=== PATIENT | male | born 1960 | race Caucasian/White ===

== ENCOUNTER 2024-03-09 12:16 | Emergency (ER) | payer BC, SELFPAY ==
[2024-03-09 12:21] VITALS: BP 125/85; PULSE 112; RESP 16; TEMP 36.7; O2SAT 91; BMI 32.3
--- NOTE | 2024-03-09 13:33 | ED_ITS ---
HPI - General Adult General Time Seen by Provider: 13:33 Date Seen: 03/09/24 Chief complaint: Lower Extremity Swelling Stated complaint: Left leg swelling/red/pain Time Seen by Provider: 03/09/24 13:33 Source: patient and family Mode of arrival: ambulatory Limitations: no limitations History of Present Illness HPI narrative: Isaias is a very pleasant 63-year-old gentleman with history of DVT, PE, significant lower extremity varicosities and history of vein stripping bilaterally x2 who comes to the emergency room for evaluation of left leg pain. Patient noted that he has had longstanding problems with his legs and now has peripheral neuropathy. He notes that he has had increasing discomfort in his left leg over the past 2 weeks and now has redness on the upper aspect of his thigh. He notes that it is very firm to the touch and painful. He is just getting over a significant respiratory infection. He states that he was quite bad but never got checked out and never did a swab. He states he is getting better but still has a productive cough of green sputum. Denies any fevers or chills. Has not had any injury to the leg. Denies any tick bites. Breathing is okay at this time and he denies any chest pain. Isaias tells me he does smoke. 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 Related Data Home Medications ?Medication ?Instructions ?Recorded ?Confirmed celecoxib 100 mg capsule 100 mg PO BID 03/09/24 03/09/24 ferrous sulfate 325 mg (65 mg 325 mg PO DAILY 03/09/24 03/09/24 iron) tablet,delayed release naltrexone 50 mg tablet 50 mg PO DAILY 03/09/24 03/09/24 sennosides 8.6 mg-docusate sodium 1 tab-cap PO DAILY 03/09/24 03/09/24 50 mg tablet simvastatin 20 mg tablet 20 mg PO QPM 03/09/24 03/09/24 tamsulosin 0.4 mg capsule 0.4 mg PO DAILY 03/09/24 03/09/24 Previous Rx's ?Medication ?Instructions ?Recorded doxycycline hyclate 100 mg capsule 100 mg PO BID #7 caps 03/09/24 rivaroxaban 10 mg tablet (Xarelto) 10 mg PO DAILY 45 days #45 tabs 03/09/24 Allergies Allergy/AdvReac Type Severity Reaction Status Date / Time chlorthalidone Allergy Unknown myalgia Verified 03/09/24 12:32 hydroxyzine AdvReac Unknown Verified 03/09/24 12:32 Review of Systems Status of ROS: Reports: 10 or more systems reviewed and unremarkable except as noted in History and below Const: Denies: fever or chills ENMT: Denies: throat pain or nasal discharge Cardio: Denies: chest pain, swelling of feet/ankles or shortness of breath with exertion Resp: Reports: cough and change in phlegm color (Green); Denies: shortness of breath GI: Denies: abdominal pain, nausea or vomiting Musculo: Reports: extremity pain Integ/Breast: Reports: redness and skin tenderness Exam Narrative: Exam Narrative: Isaias is alert and oriented. Very pleasant gentleman. EOM is full. Heart with regular rate and rhythm. Lungs show some expiratory wheezing in the bases bilaterally. Few crackles noted in the left lower lung base. Abdomen soft nontender. Examination of the lower extremity shows multiple varicosities. On the left patient has in addition to varicosities areas of erythema with central firmness on the left anterior medial thigh. Also noted erythema spreading on to the lateral part of the thigh on the left just above the kneecap. I do not note any skin compromise. Const: Vital Signs, click to edit/add: Vital Signs - 24 hr 03/09/24 12:21 Temperature 98.1 F Pulse Rate [Pulse Oximeter] 112 H Respiratory Rate 16 Blood Pressure [Ri ght Upper Arm] 125/85 Pulse Oximetry 91 Oxygen Delivery Me thod Room Air Documenting provider has reviewed patient's vital signs: yes Course Course ED Course: At this time differential diagnosis includes cellulitis, superficial thrombophlebitis complicated by cellulitis, erythema nodosum, pneumonia. Although patient did have recent lung infection he did not follow-up with the clinic for evaluation with chest x-ray or swabbing. Will do chest x-ray at this time. It would be unusual that erythema nodosum would only show up unilaterally. Also of greater concern is the possibility of underlying DVT. Have ordered ultrasound of the left lower extremity. Will also check CBC and comprehensive panel as well as CRP. Vital Signs Vital signs: Initial Vital Signs Temperature 98.1 F 03/09/24 12:21 Temperature Source Temporal Artery Scan 03/09/24 12:21 Pulse Rate 112 H 03/09/24 12:21 Pulse Rhythm Regular 03/09/24 12:21 Respiratory Rate 16 03/09/24 12:21 Blood Pressure 125/85 03/09/24 12:21 Blood Pressure Mean 98 03/09/24 12:21 Blood Pressure Position Sitting 03/09/24 12:21 Pulse Oximetry 91 03/09/24 12:21 Oxygen Delivery Method Room Air 03/09/24 12:21 Vital Signs Temperature 98.1 F 03/09/24 12:21 Pulse Rate 112 H 03/09/24 12:21 Respiratory Rate 16 03/09/24 12:21 Blood Pressure 125/85 03/09/24 12:21 Pulse Oximetry 91 03/09/24 12:21 Oxygen Delivery Method Room Air 03/09/24 12:21 Temperature 98.1 F 03/09/24 12:21 Pulse Rate 112 H 03/09/24 12:21 Respiratory Rate 16 03/09/24 12:21 Blood Pressure 125/85 03/09/24 12:21 Pulse Oximetry 91 03/09/24 12:21 Oxygen Delivery Method Room Air 03/09/24 12:21 Medical Decision Making MDM Narrative Medical decision making narrative: 1. Superficial thrombophlebitis-thrombophlebitis noted on ultrasound. Clot does extend does extend into the GSV therefore this does indicate treatment with anticoagulation. Examination does show that the erythema seems to follow the upper aspect of the venous system. There does not appear to be clot at that particular location but appearance is highly suggestive of this. We will treat with Xarelto 10 mg daily for 45 days per up-to-date protocol. 2. Cellulitis-will also treat with doxycycline for presumed cellulitis given the spreading of the erythema. Chest x-ray reassuring but if there was an occult infection doxycycline would also be appropriate. White count normal today with slight elevation of CRP to 1.6. 3. Disposition-home at this time. Prescription for both doxycycline as well as Xarelto sent to pharmacy for this gentleman. Initially offered IV antibiotics but he declines as he states that he has venison that he needs to put in the smoker. No fever chills or elevated white count so I feel this is appropriate. Asked patient to return for further evaluation if he has worsening symptoms. Medical Records Medical records reviewed: Yes I reviewed the patient's medical records Lab Data Lab results reviewed: Yes I reviewed the patient's lab results Labs: Lab Results 03/09/24 Range/Units 13:53 WBC 9.21 (4.50-11.00) K/uL RBC 6.81 H (4.30-5.90) m/uL Hgb 15.4 (13.5-17.5) gm/dL Hct 54.4 H (37.0-53.0) % MCV 80 (80-100) fL MCH 23 L (26-34) pg MCHC 28 L (32-36) gm/dL RDW Coeff of Adriana 18.0 H (11.5-15.5) % Plt Count 219 (140-440) K/uL Neut % (Auto) 75.6 H (42.0-72.0) % Lymph % (Auto) 11.9 L (20-44) % Preston % (Auto) 10.5 (0.0-11.0) % Eos % (Auto) 1.5 (0.0-7.0) % Baso % (Auto) 0.4 (0.0-3.0) % Neut # (Auto) 7.00 (1.7-7.0) K/uL Lymph # (Auto) 1.10 (0.90-2.90) K/uL Preston # (Auto) 1.00 H (0.00-0.90) K/UL Eos # (Auto) 0.14 (0.00-0.50) K/uL Baso # (Auto) 0.04 (0.00-0.30) K/uL Abs Immat Gran (auto) 0.01 (0.00-0.30) K/uL Imm/Tot Granulo (auto) 0.1 % Sodium 136 (135-149) mmol/L Potassium 4.1 (3.6-5.1) mmol/L Chloride 99 (96-114) mmol/L Carbon Dioxide 32 (20-32) mmol/L Anion Gap 5 L (7-15) mEq/L BUN 9 (7-30) mg/dL Creatinine 0.6 (0.5-1.5) mg/dL Estimated Creat Clear 78.07 Estimated GFR 108 ml/min Glucose 119 H (60-115) mg/dL Calcium 9.0 (8.4-10.6) mg/dL Total Bilirubin 0.9 (0.1-1.5) mg/dL AST 19 (12-35) U/L ALT 12 (4-50) U/L Alkaline Phosphatase 122 (40-150) U/L C-Reactive Protein 1.6 H (0.5-1.0) mg/dL Total Protein 7.5 (6.0-8.3) g/dL Albumin 4.4 (3.3-5.0) g/dL Imaging Data Venous US: Attestation: I have reviewed the pertinent imaging results. Radiologist's impression: No evidence of deep venous thrombosis within the common femoral, superficial femoral, popliteal or posterior tibial veins. Demonstration of a large calf varicose vein with superficial thrombophlebitis. There is minimal extension of clot into the adjacent greater saphenous vein. IMPRESSION: 1. No evidence of deep venous thrombosis. 2. Superficial thrombophlebitis within superficial calf varicose veins as well as the greater saphenous vein. Chest x-ray: Attestation: I have reviewed the pertinent imaging results. My impression: No obvious infiltrates Radiologist's impression: The heart is mildly enlarged, accentuated by portable technique. There is no focal airspace consolidation, pleural effusion, or pneumothorax. No displaced fractures. Remote, healed right posterolateral 8th rib fracture. Discharge Plan Discharge Clinical Impression: Cellulitis Qualifiers: Site of cellulitis: extremity Site of cellulitis of extremity: lower extremity Laterality: left Qualified Code(s): L03.116 - Cellulitis of left lower limb Superficial thrombophlebitis Qualifiers: Superficial thrombophlebitis-Involved body area: lower extremity Laterality: left Qualified Code(s): I80.02 - Phlebitis and thrombophlebitis of superficial vessels of left lower extremity Additional Instructions: Start doxycycline for treatment of cellulitis or skin infection. This would also treat any underlying chest infection although your chest x-ray was reassuring. Start treatment with Xarelto for her the superficial clot in your leg. I do want you to follow up for a recheck and another ultrasound later this week or next week. Return to the emergency room for fever, worsening symptoms and as needed. Prescriptions: New Xarelto 10 mg tablet 10 mg PO DAILY 45 Days Qty: 45 0RF Rx Instructions: for 35 days doxycycline hyclate 100 mg capsule 100 mg PO BID Qty: 7 0RF No Action naltrexone 50 mg tablet 50 mg PO DAILY simvastatin 20 mg tablet 20 mg PO QPM ferrous sulfate 325 mg (65 mg iron) tablet,delayed release (DR/EC) 325 mg PO DAILY celecoxib 100 mg capsule 100 mg PO BID sennosides-docusate sodium 8.6-50 mg tablet 1 tab-cap PO DAILY tamsulosin 0.4 mg capsule 0.4 mg PO DAILY Follow Up/Referrals: Provider,Not a Local [Primary Care Provider] - Stand Alone Forms: [employer] Info Instructions
--- NOTE | 2024-03-09 13:39 | CRLHL7_ITS ---
For Patients: As a result of the Cures Act, medical imaging exams and procedure reports are released immediately into your electronic medical record. You may view this report before your referring provider. If you have questions, please contact your health care provider. INDICATION: : Recent cough COMPARISON: None TECHNIQUE: One view(s) of the chest FINDINGS/IMPRESSION: The heart is mildly enlarged, accentuated by portable technique. There is no focal airspace consolidation, pleural effusion, or pneumothorax. No displaced fractures. Remote, healed right posterolateral 8th rib fracture. Dictated by Lanre Doll MD @ 03/09/2024 2:11:24 PM (Electronically Signed)
--- NOTE | 2024-03-09 13:39 | CRLHL7_ITS ---
For Patients: As a result of the Century Cures Act, medical imaging exams and procedure reports are released immediately into your electronic medical record. You may view this report before your referring provider. If you have questions, please contact your health care provider. INDICATION: Left leg tenderness and thigh TECHNIQUE: Ultrasound venous duplex lower left extremity. Compression venous exam was performed using hodge-scale, color Doppler, and spectral Doppler analysis. COMPARISON: None. FINDINGS: No evidence of deep venous thrombosis within the common femoral, superficial femoral, popliteal or posterior tibial veins. Demonstration of a large calf varicose vein with superficial thrombophlebitis. There is minimal extension of clot into the adjacent greater saphenous vein. IMPRESSION: 1. No evidence of deep venous thrombosis. 2. Superficial thrombophlebitis within superficial calf varicose veins as well as the greater saphenous vein. Dictated by Jayme Arevalo MD @ 03/09/2024 2:51:09 PM (Electronically Signed)
[2024-03-09 14:16] LABS: Albumin* 4.4 g/dL (3.3-5.0); Chloride* 99 mmol/L (96-114); Sodium* 136 mmol/L (135-149)
[2024-03-09 14:17] LABS: Basophils Absolute Auto 0.04 K/uL (0.00-0.30); Basophils Percent Auto 0.4 % (0.0-3.0); Eosinophils Absolute Auto 0.14 K/uL (0.00-0.50); Eosinophils Percent Auto 1.5 % (0.0-7.0); Hematocrit 54.4 % (37.0-53.0); Hemoglobin* 15.4 gm/dL (13.5-17.5); Immature Granulocytes Abs Auto 0.01 K/uL (0.00-0.30); Immature Granulocytes Pct Auto 0.1 %; Lymphocytes Percent Auto 11.9 % (20-44); Mean Corpuscular HGB Conc 28 gm/dL (32-36); Mean Corpuscular Hemoglobin 23 pg (26-34); Mean Corpuscular Volume 80 fL (80-100); Monocytes Percent Auto 10.5 % (0.0-11.0); Neutrophils Percent Auto 75.6 % (42.0-72.0); Platelet Count* 219 K/uL (140-440); Potassium* 4.1 mmol/L (3.6-5.1); Red Blood Count 6.81 m/uL (4.30-5.90); White Blood Count* 9.21 K/uL (4.50-11.00)
[2024-03-09 14:19] LABS: Alkaline Phosphatase* 122 U/L (40-150); Anion Gap 5 mEq/L (7-15); Aspartate Amino Transferase* 19 U/L (12-35); Bilirubin Total* 0.9 mg/dL (0.1-1.5); Carbon Dioxide* 32 mmol/L (20-32); Creatinine* 0.6 mg/dL (0.5-1.5); Est. Creatinine Clearance* 78.07; Estimated Glomerular Filt Rate 108 ml/min; Slide Review Reflex No
[2024-03-09 14:20] LABS: Alanine Aminotransferase* 12 U/L (4-50); Blood Urea Nitrogen* 9 mg/dL (7-30); Glucose* 119 mg/dL (60-115); Total Protein* 7.5 g/dL (6.0-8.3)
[2024-03-09 14:22] LABS: C Reactive Protein* 1.6 mg/dL (0.5-1.0)
== END 2024-03-09 15:58 | disposition home or self-care (01) ==
PROVIDERS: Emergency Provider Family Medicine
DX: L03.116 Cellulitis of left lower limb (principal); I80.02 Phlebitis and thrombophlebitis of superficial vessels of left lower extremity
CPT/HCPCS: 36415; 71045; 80053; 85025; 86140; 93971; 99284

== ENCOUNTER 2024-03-13 14:24 | Emergency (ER) | payer BC, SELFPAY ==
[2024-03-13 14:27] VITALS: BP 131/85; PULSE 80; RESP 16; TEMP 36.1; O2SAT 94; BMI 31.6
--- NOTE | 2024-03-13 14:43 | ED_ITS ---
HPI - General Adult General Chief complaint: Skin/Abscess/Foreign Body Stated complaint: Skin Infection Time Seen by Provider: 03/13/24 14:25 History of Present Illness HPI narrative: This 63-year-old male was seen a few days ago here and started on doxycycline because of the possibility of cellulitis in his left lower extremity. He had an ultrasound done at that time which showed superficial clotting. He also had an x-ray of his chest done at that time because he had reported some upper respiratory symptoms. The patient was placed on doxycycline for about 3 days and has completed this treatment. He comes in today stating that the redness and pain and swelling in his varicose veins of his left upper leg continues. He wonders if he needs more medication. He was started on Xarelto even though this was superficial clotting because he does have a history of pulmonary embolism and has not been on any anticoagulants since that occurred a few years ago. Related Data Home Medications ?Medication ?Instructions ?Recorded ?Confirmed celecoxib 100 mg capsule 100 mg PO BID 03/09/24 03/09/24 ferrous sulfate 325 mg (65 mg 325 mg PO DAILY 03/09/24 03/09/24 iron) tablet,delayed release naltrexone 50 mg tablet 50 mg PO DAILY 03/09/24 03/09/24 sennosides 8.6 mg-docusate sodium 1 tab-cap PO DAILY 03/09/24 03/09/24 50 mg tablet simvastatin 20 mg tablet 20 mg PO QPM 03/09/24 03/09/24 tamsulosin 0.4 mg capsule 0.4 mg PO DAILY 03/09/24 03/09/24 Previous Rx's ?Medication ?Instructions ?Recorded doxycycline hyclate 100 mg capsule 100 mg PO BID #7 caps 03/09/24 rivaroxaban 10 mg tablet (Xarelto) 10 mg PO DAILY 45 days #45 tabs 03/09/24 cephalexin 500 mg capsule 500 mg PO TID 5 days #15 caps 03/13/24 Allergies Allergy/AdvReac Type Severity Reaction Status Date / Time chlorthalidone Allergy Unknown myalgia Verified 03/09/24 12:32 hydroxyzine AdvReac Unknown Verified 03/09/24 12:32 Review of Systems Status of ROS: Reports: 10 or more systems reviewed and unremarkable except as noted in History and below Narrative: Constitutional: No fevers, no weight gain or loss. Eyes: No discharge. No vision changes. HENT: No congestion, no sore throat, no ear pain. Cardiovascular: No chest pain, no palpitations. Respiratory: No shortness of breath, no wheezes, no cough. Gastrointestinal: No abdominal pain, no vomiting, no diarrhea. Genitourinary: No dysuria, no hematuria. Musculoskeletal: Normal range of motion. Skin: No rashes, no pruritis. Neurological: No dizziness, weakness, sensory change, speech change. Endo/Heme/Allergies: No bruising or bleeding. No polydipsia. Pysch: no suicidality, no anxiety, no insomnia. All other systems reviewed and are negative. Exam Narrative: Exam Narrative: Constitutional: Well-developed, well-nourished, no acute distress. HEENT: Normocephalic, atraumatic. Neck: Normal range of motion. Nontender. Supple. Heart: Intact distal pulses. Lungs: No chest discomfort. No wheezes, rhonchi, or rales. Abdomen: Nontender. Back: Normal range of motion. Extremities: Normal range of motion. Left leg has large varicose veins in the upper and lower leg. The upper leg anteriorly has some erythema and firmness in various areas of these veins typical of varicose veins with thrombus. Skin: Intact. No rash. Warm. No erythema or pallor. Neurologic: No altered sensation. No weakness. Alert and oriented. Psychiatric: No suicidality. No anxiety or depression. No insomnia. Nursing notes and vitals signs are reviewed. Const: Vital Signs, click to edit/add: Vital Signs - 24 hr 03/13/24 14:27 Temperature 97.0 F L Pulse Rate [Pulse Oximeter] 80 Respiratory Rate 16 Blood Pressure [Ri ght Upper Arm] 131/85 Pulse Oximetry 94 Oxygen Delivery Me thod Room Air Course Vital Signs Vital signs: Initial Vital Signs Temperature 97.0 F L 03/13/24 14:27 Temperature Source Temporal Artery Scan 03/13/24 14:27 Pulse Rate 80 03/13/24 14:27 Respiratory Rate 16 03/13/24 14:27 Blood Pressure 131/85 03/13/24 14:27 Blood Pressure Mean 100 03/13/24 14:27 Blood Pressure Position Sitting 03/13/24 14:27 Pulse Oximetry 94 03/13/24 14:27 Oxygen Delivery Method Room Air 03/13/24 14:27 Vital Signs Temperature 97.0 F L 03/13/24 14:27 Pulse Rate 80 03/13/24 14:27 Respiratory Rate 16 03/13/24 14:27 Blood Pressure 131/85 03/13/24 14:27 Pulse Oximetry 94 03/13/24 14:27 Oxygen Delivery Method Room Air 03/13/24 14:27 Temperature 97.0 F L 03/13/24 14:27 Pulse Rate 80 03/13/24 14:27 Respiratory Rate 16 03/13/24 14:27 Blood Pressure 131/85 03/13/24 14:27 Pulse Oximetry 94 03/13/24 14:27 Oxygen Delivery Method Room Air 03/13/24 14:27 Medical Decision Making MDM Narrative Medical decision making narrative: This patient has varicose veins and now has thrombus in the superficial veins. An ultrasound established this finding a few days ago. The patient returns today because he is continued to have discomfort and redness in various areas of his varicose veins in the left upper leg. He does not report any fevers and has completed 7 tablets of doxycycline. His symptoms today are very typical of varicose veins with thrombus and not so typical for cellulitis. I did prescribe 5 days of Keflex in the event that there is an infectious cause underlying this. It is good that he is on Xarelto even though these are superficial veins as he does have a history of pulmonary embolism and there is extensive clotting in these superficial veins of his left leg. Discharge Plan Discharge Clinical Impression: Phlebitis of superficial vein, Varicose veins of both lower extremities Patient Disposition: Home, Self-Care Condition: Stable Additional Instructions: Take medication as prescribed. Follow up with MD as scheduled or return if worsening. Prescriptions: New cephalexin 500 mg capsule 500 mg PO TID 5 Days Qty: 15 0RF No Action naltrexone 50 mg tablet 50 mg PO DAILY simvastatin 20 mg tablet 20 mg PO QPM ferrous sulfate 325 mg (65 mg iron) tablet,delayed release (DR/EC) 325 mg PO DAILY celecoxib 100 mg capsule 100 mg PO BID sennosides-docusate sodium 8.6-50 mg tablet 1 tab-cap PO DAILY tamsulosin 0.4 mg capsule 0.4 mg PO DAILY Xarelto 10 mg tablet 10 mg PO DAILY 45 Days Qty: 45 0RF Rx Instructions: for 35 days doxycycline hyclate 100 mg capsule 100 mg PO BID Qty: 7 0RF Follow Up/Referrals: Provider,Not a Local [Primary Care Provider] - Stand Alone Forms: [email or web address] Info Instructions
--- OUTSIDE RECORDS SUMMARY | 2024-03-13 14:51 | XMS_ITS | Clinical Summary ---
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 Active calcium carbonate (CALCIUM 500) 500 mg calcium (1,250 mg) tablet Take 500 mg by mouth once daily with a meal. Active zinc sulfate (ZINC-220) 220 (50) mg capsule Take 1 capsule by mouth once daily. May resume on 03/09 0 03/02/2020 Active albuterol (ProAir RespiClick) 90 mcg/actuation INHALERIndications:Wh eezing Inhale 1-2 Puffs by mouth every 4 hours if needed (wheezing, shortness of breath). 1 Each 4 07/09/2022 Active clobetasol cream 0.05% (TEMOVATE) 0.05 % creamIndications:Derm atitis Apply topically to affected area(s) two times daily. 60 g 1 07/09/2022 Active naltrexone (REVIA) 50 mg tabletIndications:Alc ohol dependence in remission (HC) Take 1 Tablet (50 mg) by mouth once daily. 90 Tablet 05/27/2023 Active tamsulosin (FLOMAX) 0.4 mg capsuleIndications:BP H without urinary obstruction Take 1 Capsule (0.4 mg) by mouth once daily after a meal. 90 Capsule 3 06/21/2023 Active aspirin (ECOTRIN) 81 mg enteric coated tablet Take 1 Tablet (81 mg) by mouth once daily with a meal. 06/21/2023 Active sennosides-docusate (SENOKOT S) (8.6-50 mg) tabletIndications:Chr onic constipation Take 1 Tablet by mouth once daily. 90 Tablet 3 06/21/2023 Active ferrous sulfate 325 mg delayed release tabletIndications:Iro n deficiency anemia, unspecified iron deficiency anemia type Take 1 Tablet (325 mg) by mouth once daily with a meal. 90 Tablet 3 06/24/2023 Active simvastatin (ZOCOR) 20 mg tabletIndications:Hyp erlipidemia, unspecified hyperlipidemia type TAKE 1 TABLET(20 MG) BY MOUTH AT BEDTIME 90 Tablet 2 07/22/2023 Active celecoxib (CELEBREX) 100 mg capsuleIndications:My algia Take 1 Capsule (100 mg) by mouth two times daily with meals. 90 Capsule 3 07/23/2023 Active CPAPIndications:MAX (obstructive sleep apnea) CPAP machine for home use at pressure 12 cmw, CPAP mask- mask of choice, fit to comfort one per 3 months,cushion- 1 per month 1 Each 10/29/2023 Active Active Problems Problem Noted Date Diagnosed Date S/P left knee arthroscopic m edial meniscus root repair, 05/11/[address] Velez 05/22/2022 Tear of medial meniscus of left knee, current Primary osteoarthritis of left knee 04/24/2022 MAX 06/27/2017 AHI/RDI:30 07/08/2017 Alcoholism 05/13/2014 Snoring 02/01/2014 Screen for colon cancer 08/29/2012 Overview (08/29/2012): Colonoscopy 08/2012 diverticulosis repeat in 10 years Impotence of organic origin 08/11/2012 External hemorrhoids without mention of complica tion 03/01/2010 Insomnia, unspecified 04/13/2008 Unspecified essential hypertension 07/02/2007 Resolved Problems Problem Noted Date Diagnosed Date Resolved Date Routine general medical exam ination at a health care facility 04/13/2008 02/01/2014 TOBACCO USE 07/03/2016 Encounters Date Type Department Care Team Description 03/09/2024 Nurse Triage [facility] [address] [place] [address] Tyler Camacho MD Leg Pain/problem (Swelling, redness, pain) 03/09/2024 Nurse Triage [facility] [address] [place] [address] [place] [id number] Roslyn Velez MD from Last 3 Months Immunizations Name Administration Dates Next Due COVID-19 VACCINE SPIKEVAX (M ODERNA 50MCG/0.5ML) 12YO+ PFS 04/12/2023 COVID-19 vaccine (AuthorityLabs-J& J) PF, MDV 07/15/2020 COVID-19 vaccine (Seasonal Kids [employer]-Bio NTech 30mcg/0.3mL) 12YO+ BIVALENT PF, MDV 05/08/2022 Influenza Virus, Unspecified 02/20/2018 Influenza, IIV3 (Age >=3 years) 02/02/2021,02/13,02/21/2008 Influenza, IIV4 04/12/2023, 0,04/21/2019,2016 Pneumococcal Conj 20-valent (Prevnar 20) 11/24/2021 Td (Age >=7 Years) 06/21/2023,03/16/2007 Tdap 07/30/2012 Zoster (Shingrix-RZV, recombinant) 01/15/2020, Family History Medical History Relation Name Comments Alcoholism Brother 1 Robert Heart Disease Brother 1 Robert [place] 2008 Hyperlipidemia Brother 1 Robert Hypertension Brother 1 Robert Heart Disease Father Ricki 4 MIs Hypertension Father Ricki Cancer Maternal Aunt Shweta Other Mother Jodee COPD Anesthesia Problem No Family History Blood Disease No Family History Relation Name Status Comments Brother 1 Robert Alive Brother 2 Bigg Alive Father Ricki Alive Maternal Aunt Shweta Mother Jodee (Age 60) Sister 1 Ana Alive Sister 2 Estela Alive Social History Tobacco Use Types Packs/Day Years Used Date Smoking Tobacco: Every Day Cigarettes 1.5 30.9 Started: 1993 Smokeless Tobacco: Never Tobacco Cessation:Ready to Q uit: Not Asked; Counseling Given: Not Answered Alcohol Use Standard Drinks/Week Comments Not Currently 6 (1 standard drink = 0.6 oz pur e alcohol) PHQ-2 Answer Date Recorded PHQ-2 TOTAL SCORE 2 06/21/2023 Social Connections Answer Date Recorded Do you often feel lonely or isolated from those around you? 0 07/23/2023 Alcohol Use Answer Date Recorded How often do you have a drink containing alcohol ? 3 11/24/2021 How many drinks containing a lcohol do you have on a typical day when you are drinking? 1 11/24/2021 How often do you have five or more drinks on one occasion? 3 11/24/2021 Financial Resource Strain Answer Date R ecorded Difficulty of Paying Living Expenses 3 07/23/2023 Difficulty of Paying Living Expenses Not on file 07/23/2023 Food Insecurity Answer Date Recorded Do you worry your food will run out before you are able to buy more? 1 07/23/2023 Transportation Needs Answer Date Record ed Does lack of transportation keep you from medica l appointments? 1 07/23/2023 Does lack of transportation keep you from work, meetings or getting things that you need? 1 07/23/2023 Housing Stability Answer Date Recorded What is your housing situation today? 1 07/23/2023 Sex and Gender Information Value Date Recorded Sex Assigned at Male 11/15/2020 1:24 PM CDT Gender Identity Male 11/15/2020 1:24 PM CDT Sexual Orientation Choose not to disclose 2020 1:24 PM CDT Obstetrics History Last Filed Vital Signs Vital Sign Reading Time Taken Comments Blood Pressure 129/81 10/29/2023 1:53 PM CDT Pulse 81 10/29/2023 1:53 PM CDT Temperature 36.9 C (98.5 F) 03/12/2022 2:52 PM COLLAR SEPARATOR Respiratory Rate 20 03/12/2022 2:52 PM COLLAR SEPARATOR Oxygen Saturation 94% 10/29/2023 1:53 PM CDT Inhaled Oxygen Concentration - - Weight 103.8 kg (228 lb 12.8 oz) 10/29/2023 1:53 PM CDT Height 173.5 cm (5' 8.31) 10/29/2023 1:53 PM CD T Body Mass Index 34.47 10/29/2023 1:53 PM CDT Plan of Treatment Upcoming Encounters Date Type Department Care Team (Late st Contact Info) Description 03/16/2024 1:50 PM COLLAR SEPARATOR Office Visit [facility] [address] [place] [address] Kim Nicole DO [address] [place] [address] Health Maintenance Due Date Last Done Comments COVID-19 vaccine series ( season) 2023 04/12/2023, 05/08/2022, 03/14/2021, Additional history exists Influenza for age 50-64 12/22/2023 04/12/20, 02/02/2021, 02/29/2020, Additional history exists Depression screening for age 12+ 06/20/2024 06/21/2023, 07/13/2022, 07/11/2022, Additional history exists Low Dose CT (for lung CA) ag e 50-80 07/22/2024 07/23/2023, 12/15/2021, 05/19/2019, Additional history exists BMI (ht and wt on same day) for age 18+ 10/28/2024 10/29/2023, 04/12/2023, 11/24/2021, Additional history exists Lipids for age 45-75 04/12/2028 04/12/2023, 11/24/2021, 11/15/2020, Additional history exists Colonoscopy through age 75 06/05/203106/05 (Completed outside of [facility]), 06/05/2021, 06/05/2021, Additional history exists Tetanus booster 06/20/2033 06/21/2023, 07/21, 03/16/2007 Tdap Completed 07/30/2012 Hepatitis C screening for ag e 18-79 Completed 08/06/2012 Zoster (shingles) series for age 50+ Completed 01/15/2020, 04/21/2019 Pneumococcal series for age 6-64 Completed 11/25/19 HIV for age 15-65 Completed 04/12/2023 Procedures Procedure Name Priority Date/Time Associated Diagnosis Comments CT CHEST SCREENING LOW DOSE WO CONTRAST Routine 07/23/2023 3:58 PM CDT Encounter for screening for lung cancer Smoker ANTI HIV 1/2 Routine 04/12/2023 3:17 PM COLLAR SEPARATOR Screening for HIV (human immunodeficiency virus) LIPID PANEL Routine 04/12/2023 3:17 PM COLLAR SEPARATOR Hyperlipidemia, unspecified hyperlipidemia type SCAN-COLONOSCOPY 06/05/2021 12:0 0 AM COLLAR SEPARATOR ANTI HCV Routine 08/06/2012 7:08 AM CDT Need for hepatitis C screening test from Last 3 Months or Most Recently Relevant to Health Maintenance Results * CT CHEST SCREENING LOW DOSE WO CONTRAST (07/23/2023 3:58 PM CDT) Anatomical Region Laterality Modality Computed Tomogra phy Impressions 07/24/2023 4:08 PM CDT Negative for lung cancer screening purposes. LUNG-RADS CATEGORY 1: Negative. RADIOLOGIST RECOMMENDATION: Continue annual screening with low-dose CT chest in 12 months. Please note that all CT scans at this facility use dose modulation, iterative reconstruction and/or weight-based dosing when appropriate to reduce radiation dose to as low as reasonably achievable. Dictated by: Robert Wynn MD @07/24/2023 3:54:03 PM / NAYA:jj Narrative 07/24/2023 4:08 PM CDT For Patients: As a result of the Century Cures Act, medical imaging exams and procedure reports are released immediately into your electronic medical record. You may view this report before your referring provider. If you have questions, please contact your health care provider. CT CHEST SCREENING LOW-DOSE WITHOUT CONTRAST, 07/23/2023 INDICATION: Lung cancer screening. History of smoking. High risk patient with greater than 20 pack-year smoking history. TECHNIQUE: Low-dose lung cancer screening non-contrast CT chest. Dose reduction techniques were used. COMPARISON: 12/15/2021. FINDINGS: NODULES: None. LUNGS AND PLEURA: Emphysema. MEDIASTINUM: No suspicious lymph nodes. CORONARY ARTERY CALCIFICATION: Present. LIMITED UPPER ABDOMEN: Stable subcentimeter cyst in the dome of the liver. MUSCULOSKELETAL: No fracture. Tyler Camacho MD CT * ANTI HIV 1/2 [62125.0] (04/12/2023 3:17 PM COLLAR SEPARATOR) HIV-1/HIV-2 SCREEN Non-Reacti ve Non-Reacti ve 04/12/2023 8:01 PM COLLAR SEPARATOR [facility] Comment:HIV-1 p24 and HIV-1/ HIV-2 Ab Not Detected. Blood BLOOD SPECIMEN / Unknown Venipuncture / Unknown 04/12/2023 3:17 PM COLLAR SEPARATOR 04/12/2023 3:18 PM COLLAR SEPARATOR Tyler Camacho MD [facility]END [facility] [address] [place] [address], * LIPID PANEL (04/12/2023 3:17 PM COLLAR SEPARATOR) CHOLESTEROL,TOTAL 161 100 - 199 mg/dL 04/12/2023 8:18 PM COLLAR SEPARATOR [facility] Comment: Cholesterol, Total Reference Ranges Desirable <200 mg/dL Borderline 200-239 mg/dL High >=240 mg/dL TRIGLYCERIDES 65 <150 mg/dL 04/12/2023 8:18 PM COLLAR SEPARATOR [facility] HDL CHOLESTEROL 99 >40 mg/dL 8:18 PM COLLAR SEPARATOR [facility] NON-HDL CHOLESTEROL 62 <145 mg/dl 04/12/2023 8:18 PM COLLAR SEPARATOR [facility] CHOL/HDL RATIO 1.63 <4.50 04/12/2023 8:18 PM COLLAR SEPARATOR [facility] LDL CHOLESTEROL 49 <=130 mg/dL 04/12/2023 8:18 PM COLLAR SEPARATOR [facility] VLDL CHOLESTEROL 13 <=30 mg/dL 04/12/2023 8:18 PM COLLAR SEPARATOR [facility] PROVIDER ORDERED STATUS RANDOM 04/12/2023 8:18 PM COLLAR SEPARATOR [facility] Blood BLOOD SPECIMEN / Unknown Venipuncture / Unknown 04/12/2023 3:17 PM COLLAR SEPARATOR 04/12/2023 3:18 PM COLLAR SEPARATOR Tyler Camacho MD CHEMISTRY [facility] [address] [place] [address], [place] * SCAN-COLONOSCOPY (06/05/2021 12:00 AM COLLAR SEPARATOR) Scanner OTHER * ANTI HCV [02794.2] (08/06/2012 7:08 AM CDT) ANTI HCV Non-reacti ve [facility] Blood specimen (specimen) BLOOD SPECIMEN / Unknown 08/06/2012 7:08 AM CDT 08/06/2012 7:02 AM CDT Nithin Lopez MD SEND OUTS [facility] [place] ZIP [address] [place] [id number] from Last 3 Months or Most Recently Relevant to Health Maintenance Advance Directives * Full Code (Latest Code Status on File) Date Activated Date Inactivated Comments 03/01/2020 11:08 AM 03/02/2020 2:40 PM Question Answer Comments Code Status Discussion: Not Discussed Care Teams Diesel Retrofit Designer Relationship Specialty Start Date End Date Tyler Camacho MD [address] [place] [address] PCP - General Family Practice 05/08/19
== END 2024-03-13 14:54 | disposition home or self-care (01) ==
LOC: ED 14:49
PROVIDERS: Emergency Provider Emergency Medicine Emergency Medical Services
DX: I80.3 Phlebitis and thrombophlebitis of lower extremities, unspecified (principal); I83.93 Asymptomatic varicose veins of bilateral lower extremities
CPT/HCPCS: 99283; 99284